=== PATIENT | male | born 1970 | race Asian ===

== ENCOUNTER 2018-05-31 13:30 | Inpatient (IN) | payer MEDICARE, MEDICAID ==
[~2018-05-31] VITALS: Ht 165.1 cm; Wt 83.0 kg
[2018-05-31] MEDS ORDERED: DEPAKOTE250 MG PO (13:43)
[2018-05-31] MEDS ORDERED: SERTRALINE HCL50 MG ORAL (13:43)
[2018-05-31] MEDS ORDERED: BP med (13:43)
[2018-05-31] MEDS ORDERED: ABILIFY10 MG ORAL (13:43)
[2018-05-31 14:02] VITALS: BP 200/97
[2018-05-31 14:42] VITALS: BP 190/95
[2018-05-31 14:51] LABS: EOSINOPHILS % (AUTO) 3.5 % (0.0-3.0); HEMOGLOBIN 11.3 G/DL (14.2-18.0); LYMPHOCYTES % (AUTO) 14.4 % (20.0-45.0); MEAN CORPUSCULAR VOLUME 94 FL (80-99); NEUTROPHILS % (AUTO) 71.2 % (45.0-75.0); PLATELET COUNT 128 K/UL (150-450); RED BLOOD COUNT 3.91 M/UL (4.70-6.10); RED CELL DISTRIBUTION WIDTH 16.4 % (11.6-14.8); WHITE BLOOD COUNT 6.4 K/UL (4.8-10.8)
--- NOTE | 2018-05-31 14:51 | Emergency Room Report ---
History of Present Illness General Chief Complaint: Male Urogenital Problems Source: Patient, Family Member - Patient is a very poor historian. has limited insight to his disease process Present Illness Allergies: Coded Allergies: No Known Allergies (Verified Allergy, Unknown, 04/05/07) Patient History Past Medical History: DM, HTN, renal disease - On dialysis, other - Nonspecific psychiatric disease Pertinent Family History: unable to obtain Nursing Documentation-[facility] Past Medical History: No History, Except For Hx Hypertension: Yes Hx Asthma: Yes Hx COPD: Yes Hx Diabetes: Yes Hx Dialysis: Yes History Of Psychiatric Problem: Yes - shizophrenia Physical Exam Vital Signs Date Time Temp Pulse Resp B/P (MAP) Pulse Ox O2 Delivery O2 Flow Rate FiO2 05/31/18 13:37 98.4 88 24 192/103 88 Room Air General Appearance: no apparent distress, alert, GCS 15, non-toxic Eyes: bilateral eye normal inspection, bilateral eye PERRL ENT: hearing grossly normal, normal pharynx, no angioedema, normal voice Neck: full range of motion, supple/symm/no masses Respiratory: rales Cardiovascular #1: regular rate, rhythm, no edema, edema - Bilateral lower extremity edema Gastrointestinal: normal bowel sounds, non tender, soft, non-distended, no guarding, no rebound Genitourinary: other - Swollen bilateral testicles Musculoskeletal: back normal Neurologic: alert Psychiatric: no delusions Procedures Critical Care Time Critical Care Time 35 minutes Medical Decision Making Medical: HTN Diagnostic Impression: Primary Impression: Anasarca Additional Impression: Uncontrolled hypertension ER Course patient requiring several rounds of antihypertensive meds. Better controlled. labs reviewed. needs urgent dialysis. will admit to Nephro service. Patient thinks he had dialysis yesterday. very, very poor historian. States he only takes Abilify, and another psych medicine. Laboratory Tests Test 05/31/18 14:30 05/31/18 18:00 White Blood Count 6.4 K/UL (4.8-10.8) Red Blood Count 3.91 M/UL (4.70-6.10) L Hemoglobin 11.3 G/DL (14.2-18.0) L Hematocrit 36.5 % (42.0-52.0) L Mean Corpuscular Volume 94 FL (80-99) Mean Corpuscular Hemoglobin 28.7 PG (27.0-31.0) Mean Corpuscular Hemoglobin Concent 30.6 G/DL (32.0-36.0) L Red Cell Distribution Width 16.4 % (11.6-14.8) H Platelet Count 128 K/UL (150-450) L Mean Platelet Volume 5.3 FL (6.5-10.1) L Neutrophils (%) (Auto) 71.2 % (45.0-75.0) Lymphocytes (%) (Auto) 14.4 % (20.0-45.0) L Monocytes (%) (Auto) 10.0 % (1.0-10.0) Eosinophils (%) (Auto) 3.5 % (0.0-3.0) H Basophils (%) (Auto) 1.0 % (0.0-2.0) Sodium Level 141 MMOL/L (136-145) Potassium Level 3.3 MMOL/L (3.5-5.1) L Chloride Level 101 MMOL/L (98-107) Carbon Dioxide Level 24 MMOL/L (21-32) Anion Gap 16 mmol/L (5-15) H Blood Urea Nitrogen 112 mg/dL (7-18) H Creatinine 14.4 MG/DL (0.55-1.30) H Estimate Glomerular Filtration Rate 3.7 mL/min (>60) Glucose Level 177 MG/DL (74-106) H Lactic Acid Level 1.20 mmol/L (0.4-2.0) Calcium Level 6.5 MG/DL (8.5-10.1) L Total Bilirubin 0.5 MG/DL (0.2-1.0) Aspartate Amino Transferase (AST) 22 U/L (15-37) Alanine Aminotransferase (ALT) 31 U/L (12-78) Alkaline Phosphatase 201 U/L (46-116) H Total Creatine Kinase 422 U/L (26-308) H Creatine Kinase MB 7.0 NG/ML (0.0-3.6) H Creatine Kinase MB Relative Index 1.6 Total Protein 6.7 G/DL (6.4-8.2) Albumin 2.6 G/DL (3.4-5.0) L Globulin 4.1 g/dL Albumin/Globulin Ratio 0.6 (1.0-2.7) L Urine Color Pale yellow Urine Appearance Clear Urine pH 6 (4.5-8.0) Urine Specific [place] 1.015 (1.005-1.035) Urine Protein 4+ (NEGATIVE) H Urine Glucose (UA) 3+ (NEGATIVE) H Urine Ketones Negative (NEGATIVE) Urine Blood 3+ (NEGATIVE) H Urine Nitrite Negative (NEGATIVE) Urine Bilirubin Negative (NEGATIVE) Urine Urobilinogen Normal MG/DL (0.0-1.0) Urine Leukocyte Esterase Negative (NEGATIVE) Urine RBC 5-10 /HPF (0 - 0) H Urine WBC 0-2 /HPF (0 - 0) Urine Squamous Epithelial Cells None /LPF (NONE/OCC) Urine Bacteria Few /HPF (NONE) Microbiology Date/Time Source Procedure Growth Status 05/31/18 17:26 Nose Influenza Types A,B Antigen (RE) - Final Complete EKG Diagnostic Results Rate: normal Rhythm: NSR ST Segments: no acute changes Rhythm Strip Diag. Results Rhythm: NSR, no PVC's, no ectopy Chest X-Ray Diagnostic Results Chest X-Ray Diagnostic Results : Chest X-Ray Ordered: Yes # of Views/Limited/Complete: 1 View Indication: Shortness of Breath Interpretation: other - Severe ccardiomegaly. Mild pulmonary congestion. Last Vital Signs Date Time Temp Pulse Resp B/P (MAP) Pulse Ox O2 Delivery O2 Flow Rate FiO2 05/31/18 14:42 86 190/95 05/31/18 14:02 98.4 24 97 Room Air Status: improved Disposition: ADMITTED INPATIENT Condition: Serious Signed Out To: JEANNE Palencia May 31, 2018 14:51
[2018-05-31 14:56] LABS: HEMATOCRIT 36.5 % (42.0-52.0)
[2018-05-31 15:06] LABS: ANION GAP 16 mmol/L (5-15); BLOOD UREA NITROGEN 112 mg/dL (7-18); CALCIUM 6.5 MG/DL (8.5-10.1); CARBON DIOXIDE 24 MMOL/L (21-32); CHLORIDE 101 MMOL/L (98-107); CREATININE 14.4 MG/DL (0.55-1.30); POTASSIUM 3.3 MMOL/L (3.5-5.1); SODIUM 141 MMOL/L (136-145)
[2018-05-31 15:18] LABS: ALANINE AMINOTRANSFERASE 31 U/L (12-78); ALBUMIN 2.6 G/DL (3.4-5.0); ALBUMIN/GLOBULIN RATIO 0.6 (1.0-2.7); ALKALINE PHOSPHATASE 201 U/L (46-116); ASPARTATE AMINO TRANSFERASE 22 U/L (15-37); BILIRUBIN,TOTAL 0.5 MG/DL (0.2-1.0); CREATINE KINASE 422 U/L (26-308)
--- NOTE | 2018-05-31 15:46 | Diagnostic Imaging Report ---
Indication: Tachypnea, shortness of breath Technique: One view of the chest Comparison: 04/05/2007 Findings: Interim development of cardiomegaly. There is suggestion of small bilateral pleural effusions. There is borderline interstitial congestion. No focal consolidation. Impression: Cardiomegaly. This is a new finding since 2006 Small bilateral pleural effusions Borderline interstitial congestion
[2018-05-31 16:52] VITALS: BP 202/98
[2018-05-31 17:13] VITALS: BP 166/85
[2018-05-31 18:31] LABS: APPEARANCE,URINE CLEAR; BILIRUBIN, URINE NEGATIVE (NEGATIVE); COLOR,URINE PALE YELLOW; GLUCOSE, URINE (UA) 3+ (NEGATIVE); KETONES,URINE NEGATIVE (NEGATIVE); LEUKOCYTE ESTERASE ,URINE NEGATIVE (NEGATIVE); NITRITE,URINE NEGATIVE (NEGATIVE); PH,URINE 6 (4.5-8.0); PROTEIN,URINE 4+ (NEGATIVE); UROBILINOGEN,URINE NORMAL MG/DL (0.0-1.0)
[2018-05-31 18:48] VITALS: BP 194/94
[2018-05-31 21:10] VITALS: BP 196/101
[2018-05-31] MEDS ORDERED: Miralax 17gm pkt ORAL PRN (21:45)
[2018-05-31] MEDS: Heparin Sod 1000 units/ml 10ml IV SCH (22:00)
[2018-06-01] VITALS: BP 164/85
[2018-06-01 04:31] VITALS: BP 164/94
[2018-06-01 08:00] VITALS: BP 127/57
[2018-06-01] MEDS: Sertraline 50mg tab ORAL SCH (09:17)
[2018-06-01 12:00] VITALS: BP 159/93
--- NOTE | 2018-06-01 14:03 | History & Physical ---
History and Physical History & Physicial HP dictated # [id number] Chase Blanton MD Jun 01, 2018 14:03
--- NOTE | 2018-06-01 15:45 | History and Physical Report ---
DATE OF ADMISSION: 05/31/2018 CHIEF COMPLAINT: The patient complains of scrotal swelling. HISTORY OF PRESENT ILLNESS: This is a 47-year-old male with history of end-stage renal disease, on dialysis. He is a very poor historian. The patient when asked about his dialysis, he does not know anything. He just states his scrotum is swollen. Apparently, the patient has missed dialysis and not being compliant with his dialysis sessions, also has some psychiatric disease. He was seen in the emergency room, was found to be in fluid overload and was admitted. PAST MEDICAL HISTORY: Includes diabetes, hypertension, reported history of COPD, and asthma. MEDICATIONS: Reviewed. SOCIAL HISTORY: The patient lives with family member. ALLERGIES: Unknown. REVIEW OF SYSTEMS: Unobtainable. PHYSICAL EXAMINATION: GENERAL: The patient is a 47-year-old male, in no acute distress. VITAL SIGNS: Blood pressure 192/103, pulse 88, temperature 98.4, and respiratory rate is 24. HEENT: Somewhat pale conjunctivae. Anicteric sclerae. NECK: Supple. LUNGS: Clear to auscultation. HEART: S1, S2 without murmurs or rubs. ABDOMEN: Soft and nontender. EXTREMITIES: Bilateral pedal edema. The patient has significant scrotal edema as well, has left upper arm fistula with good bruit. LABORATORY FINDINGS: The CBC shows a WBC of 6400, hematocrit is 36.5, hemoglobin is 11.3, and platelet is 128,000. Chemistry panel shows serum sodium 141, potassium 3.3, chloride 101, BUN is 112, creatinine 14.4, blood sugar is 177, calcium is 6.5. ASSESSMENT: This is a 47-year-old male, who was admitted with fluid overload, noncompliant with dialysis apparently has history of diabetes and hypertension. Blood pressure is not controlled. He has also hypocalcemia and likely has vitamin D deficiency as well. PLAN: The patient will be dialyzed today. I will start him on Rocaltrol 0.25 mcg daily. His blood pressure medication will be adjusted. Chase Blanton M.D. : VIRIDIANA JOB#: [id number] CC:
[2018-06-01 16:00] VITALS: BP 164/108
[2018-06-01] MEDS: NovoLOG Insulin Flexpen SUBQ SCH ×2 (17:43→21:00)
[2018-06-01 20:00] VITALS: BP 182/94
[2018-06-01 21:42] LABS: BASOPHILS % (AUTO) 0.8 % (0.0-2.0); EOSINOPHILS % (AUTO) 1.4 % (0.0-3.0); HEMATOCRIT 37.5 % (42.0-52.0); HEMOGLOBIN 11.7 G/DL (14.2-18.0); LYMPHOCYTES % (AUTO) 11.3 % (20.0-45.0); MEAN CORPUSCULAR VOLUME 92 FL (80-99); MONOCYTES % (AUTO) 8.2 % (1.0-10.0); NEUTROPHILS % (AUTO) 78.4 % (45.0-75.0); PLATELET COUNT 153 K/UL (150-450); RED BLOOD COUNT 4.08 M/UL (4.70-6.10)
[2018-06-01 21:56] LABS: ALANINE AMINOTRANSFERASE 29 U/L (12-78); ALBUMIN 2.8 G/DL (3.4-5.0); ALBUMIN/GLOBULIN RATIO 0.6 (1.0-2.7); ALKALINE PHOSPHATASE 111 U/L (46-116); ANION GAP 15 mmol/L (5-15); ASPARTATE AMINO TRANSFERASE 21 U/L (15-37); BILIRUBIN,TOTAL 0.5 MG/DL (0.2-1.0); BLOOD UREA NITROGEN 82 mg/dL (7-18); CALCIUM 7.4 MG/DL (8.5-10.1); CARBON DIOXIDE 25 MMOL/L (21-32); CHLORIDE 100 MMOL/L (98-107); CREATININE 11.1 MG/DL (0.55-1.30); PHOSPHORUS 6.6 MG/DL (2.5-4.9); POTASSIUM 3.6 MMOL/L (3.5-5.1); SODIUM 140 MMOL/L (136-145)
[2018-06-01] MEDS: Heparin Sod 1000 units/ml 10ml IV SCH (22:00)
[2018-06-02] VITALS: BP 172/84
[2018-06-02] MEDS: NovoLOG Insulin Flexpen SUBQ SCH ×4 (06:03→21:17)
[2018-06-02 08:00] VITALS: BP 126/74
[2018-06-02] MEDS: Sertraline 50mg tab ORAL SCH (08:10)
[2018-06-02 12:00] VITALS: BP 136/81
--- NOTE | 2018-06-02 12:32 | Nephrology Progress Note ---
Assessment/Plan Problem List: (1) ESRD (end stage renal disease) on dialysis (2) Anasarca (3) Uncontrolled hypertension (4) Fluid overload (5) Scrotal edema Plan HD tomorrow start Phoslo and Rocaltrol elevate scrotum Subjective Subjective C/O scrotal edema Objective Objective Last 24 Hour Vital Signs Date Time Temp Pulse Resp B/P (MAP) Pulse Ox O2 Delivery O2 Flow Rate FiO2 06/02/18 12:00 98.4 66 23 136/81 (99) 95 06/02/18 09:00 Room Air 06/02/18 08:00 98.1 67 22 126/74 (91) 100 06/02/18 08:00 86 06/02/18 04:00 84 06/02/18 00:31 172/84 06/02/18 00:00 82 06/02/18 00:00 97.3 80 18 172/84 (113) 95 06/01/18 21:00 Room Air 06/01/18 20:00 97.0 76 18 182/94 (123) 97 06/01/18 20:00 75 06/01/18 16:00 97.4 71 21 164/108 (126) 95 06/01/18 16:00 77 Intake and Output 06/01/18 06/02/18 19:00 07:00 Intake Total 60 ml 60 ml Output Total 3500 ml Balance 60 ml -3440 ml Intake Oral 60 ml 60 ml Output Hemodialysis UF 3500 ml # Voids 1 1 Laboratory Tests 06/01/18 21:20: White Blood Count 6.0, Red Blood Count 4.08L, Hemoglobin 11.7L, Hematocrit 37.5L , Mean Corpuscular Volume 92, Mean Corpuscular Hemoglobin 28.7, Mean Corpuscular Hemoglobin Concent 31.2L, Red Cell Distribution Width 16.0H, Platelet Count 153, Mean Platelet Volume 5.3L, Neutrophils (%) (Auto) 78.4H, Lymphocytes (%) (Auto) 11.3L, Monocytes (%) (Auto) 8.2, Eosinophils (%) (Auto) 1.4, Basophils (%) (Auto) 0.8, Sodium Level 140, Potassium Level 3.6, Chloride Level 100, Carbon Dioxide Level 25, Anion Gap 15, Blood Urea Nitrogen 82H, Creatinine 11.1H, Estimat Glomerular Filtration Rate 4.9, Glucose Level 103, Calcium Level 7.4L, Phosphorus Level 6.6H, Total Bilirubin 0.5, Aspartate Amino Transf (AST/SGOT) 21, Alanine Aminotransferase (ALT/SGPT) 29, Alkaline Phosphatase 111, Total Protein 7.2, Albumin 2.8L, Globulin 4.4, Albumin/ Globulin Ratio 0.6L Height (Feet): 5 Height (Inches): 5.00 Weight (Pounds): 186 Cardiovascular: normal rate Respiratory/Chest: lungs clear Extremities: moderate edema Chase Blanton MD Jun 02, 2018 12:32
[2018-06-02] MEDS ORDERED: Calcitriol 0.25mcg Cap ORAL SCH (13:00)
[2018-06-02] MEDS: Calcium Acetate 667mg Tab ORAL SCH ×2 (13:01→17:06)
--- NOTE | 2018-06-02 18:02 | Consultation ---
History of Present Illness General Date patient seen: Jun 01, 2018 Chief Complaint: Male Urogenital Problems Present Illness HPI 47-year-old male with history of schizophrenia and end-stage renal disease, on dialysis who is admitted due to scrotal swelling. the pt was a poor historian however he was very anxious about his scrotum and stated that "it hurts please help me" the pt didn't know what meds he takes nor the dosage of the meds. the pt didn't endorse any si/hi. Allergies: Coded Allergies: No Known Allergies (Verified Allergy, Unknown, 04/05/07) Medication History Scheduled Aripiprazole* (Abilify*), Unknown Dose ORAL DAILY, (Reported) Divalproex Sodium* (Depakote*), 250 MG PO Q12HR, (Reported) Sertraline Hcl* (Zoloft*), Unknown Dose ORAL DAILY, (Reported) Miscellaneous Medications [BP med], (Reported) Patient History Limited by: medical condition History Provided By: Patient, Medical Record, PMD Healthcare decision maker N Resuscitation status Full Code Advanced Directive on File No Past Medical/Surgical History Past Medical/Surgical History: (1) CHF exacerbation (2) Hypertensive urgency (3) Anasarca (4) ESRD (end stage renal disease) on dialysis (5) Uncontrolled hypertension (6) Fluid overload (7) Scrotal edema Review of Systems Psychiatric: Reports: anxiety, depressed feelings Physical Exam General Appearance: alert, confused, moderate distress, agitated Last 24 Hour Vital Signs Date Time Temp Pulse Resp B/P (MAP) Pulse Ox O2 Delivery O2 Flow Rate FiO2 06/02/18 16:00 77 06/02/18 12:00 78 06/02/18 12:00 98.4 66 23 136/81 (99) 95 06/02/18 09:00 Room Air 06/02/18 08:00 98.1 67 22 126/74 (91) 100 06/02/18 08:00 86 06/02/18 04:00 84 06/02/18 00:31 172/84 06/02/18 00:00 82 06/02/18 00:00 97.3 80 18 172/84 (113) 95 06/01/18 21:00 Room Air 06/01/18 20:00 97.0 76 18 182/94 (123) 97 06/01/18 20:00 75 Intake and Output 06/01/18 06/02/18 19:00 07:00 Intake Total 60 ml 60 ml Output Total 3500 ml Balance 60 ml -3440 ml Intake Oral 60 ml 60 ml Output Hemodialysis UF 3500 ml # Voids 1 1 Laboratory Tests Test 06/01/18 21:20 White Blood Count 6.0 K/UL (4.8-10.8) Red Blood Count 4.08 M/UL (4.70-6.10) L Hemoglobin 11.7 G/DL (14.2-18.0) L Hematocrit 37.5 % (42.0-52.0) L Mean Corpuscular Volume 92 FL (80-99) Mean Corpuscular Hemoglobin 28.7 PG (27.0-31.0) Mean Corpuscular Hemoglobin Concent 31.2 G/DL (32.0-36.0) L Red Cell Distribution Width 16.0 % (11.6-14.8) H Platelet Count 153 K/UL (150-450) Mean Platelet Volume 5.3 FL (6.5-10.1) L Neutrophils (%) (Auto) 78.4 % (45.0-75.0) H Lymphocytes (%) (Auto) 11.3 % (20.0-45.0) L Monocytes (%) (Auto) 8.2 % (1.0-10.0) Eosinophils (%) (Auto) 1.4 % (0.0-3.0) Basophils (%) (Auto) 0.8 % (0.0-2.0) Sodium Level 140 MMOL/L (136-145) Potassium Level 3.6 MMOL/L (3.5-5.1) Chloride Level 100 MMOL/L (98-107) Carbon Dioxide Level 25 MMOL/L (21-32) Anion Gap 15 mmol/L (5-15) Blood Urea Nitrogen 82 mg/dL (7-18) H Creatinine 11.1 MG/DL (0.55-1.30) H Estimat Glomerular Filtration Rate 4.9 mL/min (>60) Glucose Level 103 MG/DL (74-106) Calcium Level 7.4 MG/DL (8.5-10.1) L Phosphorus Level 6.6 MG/DL (2.5-4.9) H Total Bilirubin 0.5 MG/DL (0.2-1.0) Aspartate Amino Transf (AST/SGOT) 21 U/L (15-37) Alanine Aminotransferase (ALT/SGPT) 29 U/L (12-78) Alkaline Phosphatase 111 U/L (46-116) Total Protein 7.2 G/DL (6.4-8.2) Albumin 2.8 G/DL (3.4-5.0) L Globulin 4.4 g/dL Albumin/Globulin Ratio 0.6 (1.0-2.7) L Height (Feet): 5 Height (Inches): 5.00 Weight (Pounds): 186 Medications Current Medications Medications (Trade) Dose Ordered Sig/Eric Route PRN Reason Start Time Stop Time Status Last Admin Dose Admin Acetaminophen (Tylenol) 650 mg Q4H PRN ORAL Mild Pain (Pain Scale 1-3) 05/31/18 21:45 06/30/18 21:44 Calcitriol (Rocatrol) 0.25 mcg DAILY ORAL 06/03/18 09:00 07/03/18 08:59 Calcium Acetate (Phoslo) 667 mg TIPC ORAL 06/02/18 13:00 07/02/18 12:59 06/02/18 17:06 Clonidine HCl (Catapres Tab) 0.1 mg Q4H PRN ORAL For High Blood Pressure 05/31/18 22:00 06/30/18 21:59 06/02/18 00:31 Dextrose (Dextrose 50%) 25 ml Q30M PRN IV Hypoglycemia 06/01/18 13:15 07/01/18 13:14 Dextrose (Dextrose 50%) 50 ml Q30M PRN IV Hypoglycemia 06/01/18 13:15 07/01/18 13:14 Divalproex Sodium (Depakote) 250 mg Q12HR ORAL 05/31/18 21:45 06/30/18 21:44 06/02/18 08:10 Heparin Sodium (Porcine) (Heparin Sod 1000 units/ml 10ml) 2,000 unit ONCE PRN IV dialysis 06/03/18 06:00 06/03/18 23:59 Insulin Aspart (NovoLOG) BEFORE MEALS AND HS SUBQ 06/01/18 16:30 07/01/18 16:29 06/02/18 16:52 Polyethylene Glycol (Miralax) 17 gm DAILYPRN PRN ORAL Constipation 05/31/18 21:45 06/30/18 21:44 Sertraline HCl (Zoloft) 50 mg DAILY ORAL 06/01/18 09:00 07/01/18 08:59 06/02/18 08:10 Sodium Chloride 1,000 ml @ 500 mls/hr Q2H PRN IVLG sbp<90 during hd 06/03/18 06:00 06/03/18 23:59 Assessment/Plan Problem List: (1) Schizoaffective disorder ICD Codes: F25.9 - Schizoaffective disorder, unspecified SNOMED: 77651854 Assessment/Plan dc depakote start depakote er 500 qhs start abilify 10mg qam dc Jenaro Murray MD Jun 02, 2018 18:01
[2018-06-02 20:00] VITALS: BP 185/101
[2018-06-02] MEDS: Depakote ER 500mg tab ORAL SCH (21:15)
[2018-06-03] VITALS: BP 169/96
[2018-06-03 04:00] VITALS: BP 144/87
[2018-06-03] MEDS ORDERED: Heparin Sod 1000 units/ml 10ml IV PRN (06:00)
[2018-06-03] MEDS: NovoLOG Insulin Flexpen SUBQ SCH ×4 (06:30→20:54)
[2018-06-03 08:00] VITALS: BP 176/90
[2018-06-03] MEDS: Calcitriol 0.25mcg Cap ORAL SCH (08:07)
[2018-06-03] MEDS: ARIPiprazole 10mg tab ORAL SCH (08:07)
[2018-06-03] MEDS: Calcium Acetate 667mg Tab ORAL SCH ×3 (08:07→17:36)
[2018-06-03 11:22] VITALS: BP 122/73
--- NOTE | 2018-06-03 14:41 | General Progress Note ---
Assessment/Plan Problem List: (1) ESRD (end stage renal disease) on dialysis ICD Codes: N18.6 - End stage renal disease; Z99.2 - Dependence on renal dialysis SNOMED: 909804837 (2) Anasarca ICD Codes: R60.1 - Generalized edema SNOMED: 564779240, 189237768 (3) Uncontrolled hypertension ICD Codes: I10 - Essential (primary) hypertension SNOMED: 99922328, 17590861 (4) Fluid overload ICD Codes: E87.70 - Fluid overload, unspecified SNOMED: 96847495 (5) Scrotal edema ICD Codes: N50.89 - Other specified disorders of the male genital organs SNOMED: 86367264 Assessment/Plan HD tomorrow watch BP elevate scrotum Subjective Allergies: Coded Allergies: No Known Allergies (Verified Allergy, Unknown, 04/05/07) Subjective In NAD Objective Last 24 Hour Vital Signs Date Time Temp Pulse Resp B/P (MAP) Pulse Ox O2 Delivery O2 Flow Rate FiO2 06/03/18 11:22 97.9 74 24 122/73 (89) 93 06/03/18 10:09 176/90 06/03/18 09:00 Room Air 06/03/18 08:00 97.5 80 20 176/90 (118) 96 06/03/18 07:23 89 06/03/18 04:00 72 06/03/18 04:00 97.5 82 20 144/87 (106) 96 06/03/18 00:00 96.6 72 20 169/96 (120) 96 06/03/18 00:00 74 06/02/18 22:28 185/101 06/02/18 21:00 Room Air 06/02/18 20:00 97.9 78 22 185/101 (129) 96 06/02/18 20:00 79 06/02/18 20:00 66 06/02/18 16:00 77 Intake and Output 06/02/18 06/03/18 19:00 07:00 Intake Total 520 ml 100 ml Balance 520 ml 100 ml Intake Oral 520 ml 100 ml # Voids 3 1 # Bowel Movements 1 Height (Feet): 5 Height (Inches): 5.00 Weight (Pounds): 185 Cardiovascular: normal rate Respiratory/Chest: lungs clear Edema: 2+ Generalized Chase Blanton MD Jun 03, 2018 14:41
[2018-06-03 16:00] VITALS: BP 155/97
[2018-06-03 20:00] VITALS: BP 156/79
[2018-06-03] MEDS: Depakote ER 500mg tab ORAL SCH (20:51)
[2018-06-04] VITALS: BP 151/82
--- NOTE | 2018-06-04 01:52 | General Progress Note ---
Assessment/Plan Problem List: (1) Schizoaffective disorder ICD Codes: F25.9 - Schizoaffective disorder, unspecified SNOMED: 94512794 Status: stable Assessment/Plan start depakote er 500 qhs start abilify 10mg qam Subjective Date patient seen: Jun 03, 2018 Neurologic/Psychiatric: Reports: anxiety, depressed, emotional problems Allergies: Coded Allergies: No Known Allergies (Verified Allergy, Unknown, 04/05/07) Objective Last 24 Hour Vital Signs Date Time Temp Pulse Resp B/P (MAP) Pulse Ox O2 Delivery O2 Flow Rate FiO2 06/04/18 00:00 72 06/04/18 00:00 97.5 70 18 151/82 (105) 94 06/03/18 21:00 Room Air 06/03/18 20:00 72 06/03/18 20:00 96.4 67 19 156/79 (104) 92 06/03/18 16:00 72 06/03/18 16:00 98.6 74 23 155/97 (116) 97 06/03/18 12:00 75 06/03/18 11:22 97.9 74 24 122/73 (89) 93 06/03/18 10:09 176/90 06/03/18 09:00 Room Air 06/03/18 08:00 97.5 80 20 176/90 (118) 96 06/03/18 07:23 89 06/03/18 04:00 72 06/03/18 04:00 97.5 82 20 144/87 (106) 96 Intake and Output 06/03/18 06/04/18 19:00 07:00 Intake Total 300 ml Balance 300 ml Intake Oral 300 ml # Voids 1 # Bowel Movements 1 Height (Feet): 5 Height (Inches): 5.00 Weight (Pounds): 185 General Appearance: alert, moderate distress Neurologic: oriented x 3, responsive, depressed affect Jenaro Marie MD Jun 04, 2018 01:52
[2018-06-04 04:00] VITALS: BP 146/76
[2018-06-04] MEDS: NovoLOG Insulin Flexpen SUBQ SCH ×4 (06:00→20:21)
[2018-06-04 08:00] VITALS: BP 186/101
[2018-06-04] MEDS: ARIPiprazole 10mg tab ORAL SCH (08:18)
[2018-06-04] MEDS: Calcitriol 0.25mcg Cap ORAL SCH (08:18)
[2018-06-04] MEDS: Calcium Acetate 667mg Tab ORAL SCH ×3 (08:18→17:08)
[2018-06-04 09:00] LABS: BASOPHILS % (AUTO) 1.1 % (0.0-2.0); HEMATOCRIT 40.1 % (42.0-52.0); HEMOGLOBIN 12.3 G/DL (14.2-18.0); LYMPHOCYTES % (AUTO) 20.1 % (20.0-45.0); MEAN CORPUSCULAR VOLUME 93 FL (80-99); MONOCYTES % (AUTO) 7.3 % (1.0-10.0); NEUTROPHILS % (AUTO) 69.5 % (45.0-75.0); PLATELET COUNT 137 K/UL (150-450); RED BLOOD COUNT 4.32 M/UL (4.70-6.10); RED CELL DISTRIBUTION WIDTH 16.3 % (11.6-14.8); WHITE BLOOD COUNT 5.9 K/UL (4.8-10.8)
[2018-06-04 09:17] LABS: ANION GAP 17 mmol/L (5-15); BLOOD UREA NITROGEN 97 mg/dL (7-18); CARBON DIOXIDE 25 MMOL/L (21-32); CHLORIDE 100 MMOL/L (98-107); CREATININE 13.6 MG/DL (0.55-1.30); POTASSIUM 4.3 MMOL/L (3.5-5.1); SODIUM 142 MMOL/L (136-145)
[2018-06-04 12:00] VITALS: BP 167/88
--- NOTE | 2018-06-04 12:46 | General Progress Note ---
Assessment/Plan Problem List: (1) ESRD (end stage renal disease) on dialysis ICD Codes: N18.6 - End stage renal disease; Z99.2 - Dependence on renal dialysis SNOMED: 809109129 (2) Anasarca ICD Codes: R60.1 - Generalized edema SNOMED: 913168495, 152313881 (3) Uncontrolled hypertension ICD Codes: I10 - Essential (primary) hypertension SNOMED: 89160700, 46315354 (4) Fluid overload ICD Codes: E87.70 - Fluid overload, unspecified SNOMED: 57482437 (5) Scrotal edema ICD Codes: N50.89 - Other specified disorders of the male genital organs SNOMED: 54708627 Assessment/Plan HD tomorrow watch BP elevate scrotum Subjective Allergies: Coded Allergies: No Known Allergies (Verified Allergy, Unknown, 04/05/07) Subjective In NAD Objective Last 24 Hour Vital Signs Date Time Temp Pulse Resp B/P (MAP) Pulse Ox O2 Delivery O2 Flow Rate FiO2 06/04/18 12:00 98.0 68 18 167/88 (114) 96 06/04/18 09:00 Room Air 06/04/18 08:00 75 06/04/18 08:00 98.2 78 18 186/101 (129) 96 06/04/18 07:46 186/101 06/04/18 04:00 97.3 67 18 146/76 (99) 92 06/04/18 04:00 72 06/04/18 00:00 72 06/04/18 00:00 97.5 70 18 151/82 (105) 94 06/03/18 21:00 Room Air 06/03/18 20:00 72 06/03/18 20:00 96.4 67 19 156/79 (104) 92 06/03/18 16:00 72 06/03/18 16:00 98.6 74 23 155/97 (116) 97 Intake and Output 06/03/18 06/04/18 18:59 06:59 Intake Total 300 ml 75 ml Balance 300 ml 75 ml Intake Oral 300 ml 75 ml # Voids 1 1 # Bowel Movements 1 Laboratory Tests 06/04/18 08:05: White Blood Count 5.9, Red Blood Count 4.32L, Hemoglobin 12.3L, Hematocrit 40.1L , Mean Corpuscular Volume 93, Mean Corpuscular Hemoglobin 28.6, Mean Corpuscular Hemoglobin Concent 30.8L, Red Cell Distribution Width 16.3H, Platelet Count 137L, Mean Platelet Volume 5.7L, Neutrophils (%) (Auto) 69.5, Lymphocytes (%) (Auto) 20.1, Monocytes (%) (Auto) 7.3, Eosinophils (%) (Auto) 2.0, Basophils (%) (Auto) 1.1, Sodium Level 142, Potassium Level 4.3, Chloride Level 100, Carbon Dioxide Level 25, Anion Gap 17H, Blood Urea Nitrogen 97H, Creatinine 13.6H, Estimat Glomerular Filtration Rate 3.9, Glucose Level 78, Calcium Level 8.0L Height (Feet): 5 Height (Inches): 5.00 Weight (Pounds): 182 Cardiovascular: normal rate Respiratory/Chest: lungs clear Edema: 1+ Generalized Chase Blanton MD Jun 04, 2018 12:45
[2018-06-04] MEDS ORDERED: Heparin Sod 1000 units/ml 10ml IV SCH (14:45)
[2018-06-04 16:00] VITALS: BP 171/96
[2018-06-04 20:00] VITALS: BP 163/75
[2018-06-04] MEDS: Depakote ER 500mg tab ORAL SCH (20:20)
[2018-06-05] VITALS: BP 170/92
[2018-06-05 04:00] VITALS: BP 154/90
[2018-06-05] MEDS: NovoLOG Insulin Flexpen SUBQ SCH ×2 (06:30→11:30)
[2018-06-05 08:00] VITALS: BP 191/107
[2018-06-05] MEDS: Calcium Acetate 667mg Tab ORAL SCH ×2 (09:46→14:35)
[2018-06-05] MEDS: ARIPiprazole 10mg tab ORAL SCH (09:46)
[2018-06-05] MEDS: Calcitriol 0.25mcg Cap ORAL SCH (09:46)
[2018-06-05 12:00] VITALS: BP 216/108
--- NOTE | 2018-06-05 12:35 | General Progress Note ---
Assessment/Plan Problem List: (1) Schizoaffective disorder ICD Codes: F25.9 - Schizoaffective disorder, unspecified SNOMED: 24564298 Assessment/Plan start depakote er 500 qhs start abilify 20mg qam the pt is not refusing po meds Subjective Neurologic/Psychiatric: Reports: anxiety, depressed Allergies: Coded Allergies: No Known Allergies (Verified Allergy, Unknown, 04/05/07) Subjective the pt is still paranoid and refusing IV access. Objective Last 24 Hour Vital Signs Date Time Temp Pulse Resp B/P (MAP) Pulse Ox O2 Delivery O2 Flow Rate FiO2 06/05/18 11:19 198/104 06/05/18 09:00 Room Air 06/05/18 08:00 97.2 70 21 191/107 (135) 98 06/05/18 04:00 97.1 66 18 154/90 (111) 96 06/05/18 04:00 62 06/05/18 00:47 170/92 06/05/18 00:00 68 06/05/18 00:00 97.3 68 18 170/92 (118) 97 06/04/18 21:00 Room Air 06/04/18 20:00 68 06/04/18 20:00 97.6 68 18 163/75 (104) 93 06/04/18 17:21 179/95 06/04/18 16:00 98.0 89 18 171/96 (121) 96 Intake and Output 06/04/18 06/05/18 18:59 06:59 Intake Total 360 ml Balance 360 ml Intake Oral 360 ml # Voids 1 Height (Feet): 5 Height (Inches): 5.00 Weight (Pounds): 183 General Appearance: alert, moderate distress Neurologic: oriented x 3, responsive, depressed affect Jenaro Marie MD Jun 05, 2018 12:35
--- NOTE | 2018-06-05 15:05 | General Progress Note ---
Assessment/Plan Problem List: (1) ESRD (end stage renal disease) on dialysis ICD Codes: N18.6 - End stage renal disease; Z99.2 - Dependence on renal dialysis SNOMED: 581098455 (2) Anasarca ICD Codes: R60.1 - Generalized edema SNOMED: 394173286, 086205981 (3) Uncontrolled hypertension ICD Codes: I10 - Essential (primary) hypertension SNOMED: 61426147, 96815405 (4) Fluid overload ICD Codes: E87.70 - Fluid overload, unspecified SNOMED: 64825565 (5) Scrotal edema ICD Codes: N50.89 - Other specified disorders of the male genital organs SNOMED: 59489897 Assessment/Plan Pt was dialyzed today Amlodipine 5 mg daily discussed with AMAURI MORAES today Subjective Allergies: Coded Allergies: No Known Allergies (Verified Allergy, Unknown, 04/05/07) Subjective In NAD Objective Last 24 Hour Vital Signs Date Time Temp Pulse Resp B/P (MAP) Pulse Ox O2 Delivery O2 Flow Rate FiO2 06/05/18 14:35 68 216/108 06/05/18 12:00 97.0 68 22 216/108 (144) 98 06/05/18 12:00 68 06/05/18 11:19 198/104 06/05/18 09:00 Room Air 06/05/18 08:00 63 06/05/18 08:00 97.2 70 21 191/107 (135) 98 06/05/18 04:00 97.1 66 18 154/90 (111) 96 06/05/18 04:00 62 06/05/18 00:47 170/92 06/05/18 00:00 68 06/05/18 00:00 97.3 68 18 170/92 (118) 97 06/04/18 21:00 Room Air 06/04/18 20:00 68 06/04/18 20:00 97.6 68 18 163/75 (104) 93 06/04/18 17:21 179/95 06/04/18 16:00 98.0 89 18 171/96 (121) 96 Intake and Output 06/04/18 06/05/18 18:59 06:59 Intake Total 360 ml Balance 360 ml Intake Oral 360 ml # Voids 1 Height (Feet): 5 Height (Inches): 5.00 Weight (Pounds): 183 Cardiovascular: normal rate Respiratory/Chest: lungs clear Edema: 1+ Generalized Chase Blanton MD Jun 05, 2018 15:05
[2018-06-05] MEDS ORDERED: ABILIFY10 MG ORAL (15:10)
[2018-06-05] MEDS ORDERED: CALCITRIOL0.25 MCG ORAL (15:10)
[2018-06-05] MEDS ORDERED: Calcium Acetate ORAL (15:10)
[2018-06-05] MEDS ORDERED: NORVASC5 MG ORAL (15:10)
[2018-06-05] MEDS ORDERED: DIVALPROEX SOD500 M2 ORAL (15:10)
[2018-06-05 16:00] VITALS: BP 200/110
[2018-06-05 16:15] VITALS: BP 195/97
[2018-06-05] MEDS ORDERED: NEPHROVITE1 TAB ORAL (17:10)
--- NOTE | 2018-06-06 08:26 | Discharge Summary ---
Discharge Summary Discharge Summary _ DATE OF ADMISSION: 05/31/2018 DATE OF DISCHARGE: 06/05/2018 DISCHARGED BY: Chase Blanton CONSULTANTS: Dr. Jenaro Marie BRIEF HOSPITAL COURSE: Patient is a 47-year-old male, with history of end-stage renal disease, on hemodialysis, hypertension, diabetes, COPD, asthma and psychiatric disease presented to ED with complaints of scrotal swelling. Patient is a very poor historian. Apparently, patient missed dialysis and was not compliant with dialysis sessions. On evaluation at ED, blood pressure was 192/103. He required several rounds of antihypertensive medications. Blood work showed no leukocytosis, hemoglobin 11 , hematocrit 36, platelet of 128. Creatinine was elevated to 14, BUN 112. Calcium was 6.5. He had anasarca. Chest x-ray showed small bilateral pleural effusions and borderline interstitial congestion. Influenza screen was negative. He was found to be in fluid overload and was admitted. He was given inpatient hemodialysis. He was started on Rocaltrol 0.25 mcg and PhosLo 667 mg 3 times daily. Advised to elevate scrotal area. Patient was anxious. He was seen by psychiatrist. He was diagnosed with schizoaffective disorder. Depakote 250 mg twice daily was discontinued. He was given Depakote ER 500 mg nightly and Abilify 10 mg every morning. Zoloft was discontinued. Blood pressure was monitored. He was given Norvasc and was placed on clonidine 0.1 mg as needed. FINAL DIAGNOSES: End-stage renal disease on hemodialysis Anasarca Uncontrolled hypertension Fluid overload Scrotal edema Schizoaffective disorder DISPOSITION: Patient was discharged home with home health. DISCHARGE MEDICATIONS: Refer to Discharge Medication List. DISCHARGE INSTRUCTIONS: Follow-up in a week. I have been assigned to dictate discharge summary on this account, and I was not involved in the patient's management. Gayle Peoples NP Jun 06, 2018 08:26
[2018-06-06] MEDS ORDERED: ARIPiprazole 10mg tab ORAL SCH (09:00)
== END 2018-06-05 18:07 | disposition home or self-care (01) | DRG 682 ==
LOC: EMR 14:29 → 2E 17:55 → EDBEDREQ 18:50 → 2E 21:07
PROC: 5A1D70Z Performance of Urinary Filtration, Intermittent, Less than 6 Hours Per Day (ICD-10-PCS; principal; 2018-06-01)
DX: I12.0 Hypertensive chronic kidney disease with stage 5 chronic kidney disease or end stage renal disease (principal); N18.6 End stage renal disease; Z99.2 Dependence on renal dialysis; N50.89 Other specified disorders of the male genital organs; F25.9 Schizoaffective disorder, unspecified; J44.9 Chronic obstructive pulmonary disease, unspecified; Z91.15 Patient's noncompliance with renal dialysis; E11.22 Type 2 diabetes mellitus with diabetic chronic kidney disease; N18.9 Chronic kidney disease, unspecified; E83.51 Hypocalcemia; E55.9 Vitamin D deficiency, unspecified
CPT/HCPCS: 36415; 71045; 80048; 80053; 81003; 82550; 82553; 82962; 83605; 84100; 85025; 86710; 87040; 87081; 93005; 96374; 99291; J1815